=== PATIENT | male | born 1985 | race Caucasian/White ===

== ENCOUNTER 2017-06-09 10:25 | Emergency (ER) | payer MEDICAID ==
[~2017-06-09] VITALS: Ht 185.4 cm; Wt 104.5 kg
[2017-06-09 10:39] VITALS: BP 142/86
[2017-06-09 10:57] LABS: APPEARANCE,URINE CLEAR (CLEAR); GLUCOSE, URINE (UA) NEGATIVE (NEGATIVE); KETONES,URINE NEGATIVE (NEGATIVE); LEUKOCYTE ESTERASE ,URINE NEGATIVE (NEGATIVE); OCCULT BLOOD,URINE NEGATIVE (NEGATIVE); PROTEIN,URINE NEGATIVE (NEGATIVE)
[2017-06-09 11:13] LABS: RBC,URINE None Seen /HPF (0-2); SQUAMOUS EPITHELIAL CELL,UR Few /LPF (None Seen); WBC,URINE 0-2 /HPF (0-5)
[2017-06-09] MEDS ORDERED: PSEUDOEPHEDRINE HCL 30 MG TABLET PO ONE (12:00)
== END 2017-06-09 12:29 | disposition home or self-care (01) ==
LOC: EMS 10:25
DX: J06.9 Acute upper respiratory infection, unspecified (principal); F17.210 Nicotine dependence, cigarettes, uncomplicated
CPT/HCPCS: 99284

== ENCOUNTER 2018-02-03 09:30 | Emergency (ER) | payer MEDICAID ==
[~2018-02-03] VITALS: Ht 185.4 cm; Wt 115.9 kg
[2018-02-03 09:37] VITALS: BP 157/93
== END 2018-02-03 11:15 | disposition left against medical advice (07) ==
LOC: EMS 09:32
DX: K62.89 Other specified diseases of anus and rectum (principal); F17.210 Nicotine dependence, cigarettes, uncomplicated; Z53.21 Procedure and treatment not carried out due to patient leaving prior to being seen by health care provider

== ENCOUNTER 2019-07-13 21:03 | Emergency (ER) | payer MEDICAID ==
[~2019-07-13] VITALS: Ht 185.4 cm; Wt 109.1 kg
[2019-07-13] MEDS ORDERED: HYDROCODONE/ACETAMINOPHEN 5-325 MG TABLET PO ONE (23:30)
[2019-07-14] MEDS ORDERED: BACITRACIN 0.9 GM PACKET OINTMENT TP ONE (01:15)
[2019-07-14 01:16] VITALS: BP 130/76
== END 2019-07-14 01:18 | disposition home or self-care (01) ==
LOC: EMS 21:04
DX: T23.221A Burn of second degree of single right finger (nail) except thumb, initial encounter (principal); K59.00 Constipation, unspecified; K64.9 Unspecified hemorrhoids; F17.210 Nicotine dependence, cigarettes, uncomplicated; X10.2XXA Contact with fats and cooking oils, initial encounter; Y93.89 Activity, other specified; Y92.89 Other specified places as the place of occurrence of the external cause; Y99.8 Other external cause status
CPT/HCPCS: 16020; 99406

== ENCOUNTER 2024-06-24 17:07 | Emergency (ER) | payer MEDICAID ==
[~2024-06-24] VITALS: Ht 185.4 cm; Wt 100.0 kg
[2024-06-24 17:12] VITALS: BP 146/91; PULSE 84; RESP 16; TEMP 98.8; O2SAT 98
[2024-06-24] MEDS: PredniSONE 20 MG TABLET PO ONE (18:01)
[2024-06-24] MEDS: DiphenhydrAMINE HCL 25 MG CAPSULE PO ONE (18:01)
[2024-06-24] MEDS ORDERED: PRED-554 PO (18:05)
[2024-06-24] MEDS ORDERED: POLYOS OU (18:05)
[2024-06-24] MEDS ORDERED: DIPH-1243 PO (18:05)
[2024-06-24] MEDS: POLYMYXIN B/TRIMETHOPRIM 10 ML OPHTHALMIC SOLUTION OU ONE (18:20)
== END 2024-06-24 18:24 | disposition home or self-care (01) ==
LOC: EMS 17:10
DX: H10.33 Unspecified acute conjunctivitis, bilateral (principal); F17.210 Nicotine dependence, cigarettes, uncomplicated
CPT/HCPCS: 99284; J7512

== ENCOUNTER 2024-09-25 13:58 | Emergency (ER) | payer SELFPAY ==
[~2024-09-25] VITALS: Ht 175.3 cm; Wt 95.5 kg
[~2024-09-25 13:58] MED LIST: DIPH-1243 PO; POLYOS OU; PRED-554 PO
[2024-09-25 14:11] VITALS: TEMP 98.2
[2024-09-25] MEDS ORDERED: IBUP-1554 PO (15:23)
[2024-09-25] MEDS ORDERED: HYDR-4062 PO (15:23)
[2024-09-25] MEDS ORDERED: POLYOS OP (15:23)
[2024-09-25] MEDS ORDERED: GUAIFDM PO (15:23)
[2024-09-25] MEDS: GuaiFENesin/D-METHORPHAN [SUGAR-FREE] 200-20MG/10 ML SYRUP UDCUP PO ONE (15:34)
[2024-09-25] MEDS: HYDROCODONE/ACETAMINOPHEN 5-325 MG TABLET PO ONE (15:35)
[2024-09-25 15:38] VITALS: BP 128/70; PULSE 74; RESP 16; O2SAT 99
== END 2024-09-25 16:00 | disposition home or self-care (01) ==
LOC: EMS 13:58 → EDUNIT# 13:58 → EMS 16:00
DX: B30.9 Viral conjunctivitis, unspecified (principal); J06.9 Acute upper respiratory infection, unspecified; F17.210 Nicotine dependence, cigarettes, uncomplicated
CPT/HCPCS: 99283